=== PATIENT | male | born 1995 | race Caucasian/White ===

== ENCOUNTER 2017-08-27 18:55 | Emergency (ER) | payer BC ==
[~2017-08-27] VITALS: Ht 172.7 cm; Wt 73.6 kg
[2017-08-27] MEDS ORDERED: CYCLOBENZAPRINE 10 MG TABLET PO STA (20:46)
[2017-08-27] MEDS ORDERED: CYCLOBENZAPRINE 10 MG TABLET ONE (20:51)
[2017-08-27 21:11] VITALS: BP 108/60
== END 2017-08-27 21:13 | disposition home or self-care (01) ==
LOC: ED 21:00
DX: S16.1XXA Strain of muscle, fascia and tendon at neck level, initial encounter (principal); S29.012A Strain of muscle and tendon of back wall of thorax, initial encounter; V59.09XA Driver of pick-up truck or van injured in collision with other motor vehicles in nontraffic accident, initial encounter; Y93.89 Activity, other specified; Y99.8 Other external cause status; Y92.89 Other specified places as the place of occurrence of the external cause
CPT/HCPCS: 72020; 72050; 72072; 99284